=== PATIENT | female | born 1970 | race Caucasian/White ===

== ENCOUNTER 2017-01-28 05:49 | Day surgery (SDC) | payer OTHER ==
[~2017-01-28] VITALS: Ht 154.9 cm; Wt 63.4 kg
[2017-01-28] VITALS (12 sets, daily range): BP systolic 98–131; BP diastolic 59–80; PULSE 59–86; RESP 8–17; O2SAT 91–98
[~2017-01-28 05:49] MED LIST: ASCO250T7 PO; CHOL200047 PO; FLUT16SP NS; LORA10CA PO; Lactated Ringer's 1,000 ML IV ONE
[2017-01-28] MEDS ORDERED: Rocuronium 10 mg/mL 5 mL Inj ONE (05:50)
[2017-01-28] MEDS ORDERED: EPHEDrine/NS 5 mg/mL 5 mL Syringe ONE (05:50)
[2017-01-28] MEDS ORDERED: Dexamethasone 4 mg/mL Inj ONE (05:50)
[2017-01-28] MEDS ORDERED: Succinylcholine Chloride 20 mg/mL 5 mL Inj ONE (05:50)
[2017-01-28] MEDS ORDERED: Propofol 10,000 mCg/mL 20 mL Inj ONE (05:50)
[2017-01-28] MEDS ORDERED: fentaNYL-PF 50 mCg/mL 2 mL Inj ONE (05:50)
[2017-01-28] MEDS ORDERED: Remifentanil 1 mg/3 mL Inj ONE (05:50)
[2017-01-28] MEDS ORDERED: Ondansetron 2 mg/mL 2 mL Inj ONE (05:50)
[2017-01-28] MEDS ORDERED: MetoCLOpramide 5 mg/mL 2 mL Inj ONE (05:50)
[2017-01-28] MEDS ORDERED: DEXAMETHASONE IV ONE ×2 (06:00)
[2017-01-28] MEDS ORDERED: D5W IV ONE ×2 (06:00)
[2017-01-28] MEDS ORDERED: ACET325T51 PO (06:41)
[2017-01-28] MEDS ORDERED: Lidocaine 1%/Epi 1:100,000 30 mL MDV INFILTRATE ONE (07:30)
[2017-01-28] MEDS ORDERED: Lactated Ringer's 1,000 ML IV SCH (07:56)
[2017-01-28] MEDS ORDERED: Lactated Ringer's 500 ML IV PRN (07:56)
--- NOTE | 2017-01-28 07:56 | PCM.HPANE ---
Patient Data Surgeon Admitting Provider: Attending Provider:Jose Guadalupe Marie MD Primary Care Physician:Catarino Other Provider:Janusz Godinez Anesthesia Reason for Visit Neoplasm Of Uncertain Behavior Of Thyroid Gland Ht/WT & BMI Height (Feet): 5 Height (Inches): 1 Weight (Kilograms): 63.4 Body Mass Index 26.00 Allergies Coded Allergies: No Known Allergies (Verified Allergy, Unknown, 12/14/10) Past Anesthesia History Anesthesia History: Positive for:: Anesthesia Reactions (slow to arouse after surgery), Denies:: Abnormal Airway, Difficult Intubation Diabetes History Hx Diabetes?: No MRSA MRSA: No Medications Hypertension Medication: No Home Meds Incl Beta Dieter: No Reported Medications Acetaminophen 325 Mg [id number] Mg PO Q4H PRN For Pain Ref 0 01/28/17 Ascorbic Acid (Vitamin C)250 Mg Tab.[id number] Mg PO DAILY #30 TABLET Ref 0 01/22/17 Fluticasone Propionate (Fluticasone Propionate Nasal)16 Gm [email or web address] [place] NS BID #16 GM Ref 0 01/22/17 Loratadine (Claritin)10 Mg [id number] Mg PO DAILY Ref 0 01/22/17 Cholecalciferol (Vitamin D3) (Vitamin D3)2,000 Unit Capsule2,000 Unit PO DAILY 01/22/17 Discontinued Reported Medications Loratadine-Expunged Drug, Do Not Renew! 10 Mg [id number] Mg PO DAILY prn 12/14/10 History History of ENT Problems?: No HEENT History: Denies:: Abnormal Airway Cataracts Difficult Intubation Dysphagia Glaucoma Hearing Problem Sinus Problem TMJ Denture Type: None Teeth Condition: Within Normal Limits Hx of Heart Problems?: No Cardiovascular History: Denies:: AICD Abdominal Aortic Aneurism Atrial Fibrillation Cardiac Surgery Edema Heart Murmur Hypertension Irregular Heartbeat Pacemaker Peripheral Vascular Rheumatic Fever Hx of Respiratory Problem?: No Respiratory History: Denies:: Asthma COPD Emphysema Oxygen Administration Pneumonia Tuberculosis Use of C-PAP Machine Use of Inhalers / NEBS Hx Neurologic Problems?: No Neurological History: Denies:: CVA Dementia Dizziness Headaches Multiple Sclerosis Parkinson's Disease Seizures TIA Hx of GI Problems?: Yes Hx of Problems?: No Genitourinary History: Denies:: Kidney Stones Urinary Tract Infection (past hx ) Female Hx: Denies:: Currently Problems with Breasts? Skin History: Denies:: History Skin Disorders? Pressure Ulcers Hx Musculoskeletal Problems?: Yes Musculoskeletal History: Positive for:: Back Injury (sciatica left sided) Denies:: Fibromyalgia Joint Replacement Myasthenia Gravis Osteoarthritis Systemic Lupus Hx of Psycho/Social Problems?: No Psycho Social History: Denies:: Anxiety Hx Depression Hx Surgeries?: Yes (kristi, partial hyst, ovarian mass) Hx Any Other Health Problems?: Yes Other History: Positive for:: Thyroid Disease (current admission problem) Denies:: Cancer Hospitalization History Blood Transfusions: Positive for:: Accept Blood Products? Denies:: Blood Transfusions Hx Diabetes: No Hx Alcohol Use: YesAlcoholic Drinks Per Day: 2 drinks weeklyHx Substance Use: NoHave You Smoked inLast 12 mo: No Stop/Bang S-Snoring: Do You Snore Loudly: No T-Tired: feel tired, fatigued: No O-Obsered: Observed not breath: No P-Blood Pressure: treated: No B- Body Mass Index > 35 kg/m2: No A- Age over 50: No N- Neck Large Circumference: No G- Gender Male: No HELEN Total Score: 0 Risk Assessment Category Category 1A: Patient has history of documented sleep apnea, and HAS NOT received any narcotic, sedative or anesthesia administration during this stay. Category 1B: Patient has history of documented sleep apnea, and HAS received any narcotic , sedative or anesthesia administration during this stay Category 2: Patient has SUSPECTED Obstructive Sleep Apnea, and HAS received any narcotic , sedative or anesthesia administration during this stay. Category 3: Patient has SUSPECTED Obstructive Sleep Apnea and HAS NOT received narcotic, sedative or anesthesia administration during this stay. Category 4: Outpatient in Procedural Areas with known sleep apnea or who screen positive for High Risk via the STOP/BANG questionnaire. Exam Exam Vital Signs Vital Signs Date Time Temp Pulse Resp B/P Pulse Ox O2 Delivery O2 Flow Rate FiO2 01/28/17 06:30 36.2 59 12 98/73 98 Room Air 01/28/17 06:27 36.2 59 12 98/73 98 Room Air General Appearance: Alert, Oriented X3, Cooperative, No Acute Distress HEENT/AIRWAY: MP 2, Neck Movement (FROM), Mouth Opening (3 FBMO) Lungs: Clear to Auscultation, Normal Air Movement Heart: Exam Unremarkable, Regular Rate/Rhythm, No Murmurs/Rubs/Gallops Meds/Labs/Diagnostics Admission Meds Current Medications Dexamethasone Sodium Phosphate 10 mg/Dextrose/ Water 51 ml @ 102 mls/hr PREOP ONCE IV Last administered on 01/28/17 06:33; Start 01/28/17 at 06:00; Stop at 06:29; Status DC Lactated Ringer's (Lr) 1,000 ml @ 120 mls/hr Q8H20M ONCE IV Last administered on 01/28/17 05:52; Start 01/28/17 at 05:00; Stop 01/28/17 at 13:19 Plan Impression Patient chart reviewed, patient interviewed and anesthestic plan with risks, benefits, and alternatives discussed, and informed consent obtained. NPO per Anesth. Guidelines: Yes ASA Physical Status: ASA2 Mod Systemic Disease Anesthetic Plan: GA Bene/Risks/Altern/Consents: Yes HP Complete Prior to Induction: Yes Elkin Addison MD Jan 28, 2017 06:52
[2017-01-28] MEDS ORDERED: Phenylephrine 10,000 mCg/mL Inj IVPUSH PRN (08:00)
[2017-01-28] MEDS ORDERED: Labetalol 5 mg/mL 4 mL Inj IV PRN (08:00)
[2017-01-28] MEDS ORDERED: EPHEDrine Sulfate 50 mg/mL Inj IVPUSH PRN (08:00)
[2017-01-28] MEDS ORDERED: Ondansetron 2 mg/mL 2 mL Inj IVPUSH PRN (08:00)
[2017-01-28] MEDS ORDERED: MetoCLOpramide 5 mg/mL 2 mL Inj IVPUSH PRN (08:00)
[2017-01-28] MEDS ORDERED: Atropine 0.4 mg/mL Inj IVPUSH PRN (08:00)
[2017-01-28] MEDS ORDERED: fentaNYL-PF 50 mCg/mL 2 mL Inj IVPUSH PRN (08:00)
[2017-01-28] MEDS ORDERED: Bacitracin Ointment Packet TOPICAL ONE (09:07)
[2017-01-28] MEDS: HYDROmorphone 1 mg/mL Inj IVPUSH PRN ×2 (09:35→09:41)
[2017-01-28] MEDS ORDERED: HYDROcodone-APAP 5-325 mg Tablet PO ONE ×2 (09:55→10:41)
--- NOTE | 2017-01-28 10:09 | PCM.ANEP1 ---
Post Anesthesia Phase 1 PACU Phase 1 Assessment Vital Signs Vital Signs Date Time Temp Pulse Resp B/P Pulse Ox O2 Delivery O2 Flow Rate FiO2 01/28/17 10:00 74 11 104/76 93 Nasal Cannula 2 01/28/17 09:46 82 13 100/61 92 Nasal Cannula 1 01/28/17 09:35 36.3 83 14 104/66 93 Nasal Cannula 2 01/28/17 09:31 86 17 106/60 94 Nasal Cannula 4 01/28/17 09:25 85 8 103/59 94 Nasal Cannula 4 01/28/17 09:20 84 15 108/68 92 Nasal Cannula 4 01/28/17 09:15 36.4 85 12 131/80 98 Simple Mask 8 01/28/17 06:30 36.2 59 12 98/73 98 Room Air 01/28/17 06:27 36.2 59 12 98/73 98 Room Air Anesthetic Administered: GA Level of Alertness: Awake, talking OCHOA's with Equal Strength: Yes Pain: No Nausea or Vomiting: No Cardiovascular Function and Hy: Yes Oxygen Delivery: Simple Mask Lungs: Clear to Auscultation, Normal Air Movement Dermatome Level: Full Sensation Complications: No Follow up Care: No Elkin Addison MD Jan 28, 2017 10:09
--- NOTE | 2017-01-28 17:45 | OP ---
[address] [address] OPERATIVE REPORT PATIENT: NOEL CISNEROS : 1970 MR#: [id number] ADMIT: 01/28/2017 JOB ID: [id number] DATE OF SURGERY: 01/28/2017 PREOPERATIVE DIAGNOSIS(ES): Right thyroid mass. POSTOPERATIVE DIAGNOSIS(ES): Right thyroid mass. PROCEDURE: Total thyroidectomy. SURGEON: Jose Guadalupe Marie MD. CHAINSTITCH FELLED SEAM OPERATOR: Jason Stout MD. ANESTHESIA: General endotracheal anesthesia. ESTIMATED BLOOD LOSS: 10 mL. FINDINGS: Right thyroid hypertrophy, left lobe grossly normal. Recurrent laryngeal nerves identified and intact, probable inferior parathyroids identified and left in situ. Excellent hemostasis. COMPLICATIONS: None. INDICATIONS: A 46-year-old female with the above diagnosis, suspicious for malignancy by gene expression analysis, atypia on FNA 09/2016 presents for the above procedure. Following discussion of the material risks, benefits, complications and alternatives, she elected total thyroidectomy to prevent the need for further surgery in the future. DESCRIPTION OF PROCEDURE: Following identification and confirmation of consent, she is brought to the operating suite and placed in the supine position. General endotracheal anesthesia was administered. The neck was extended with a shoulder roll placed. A slightly curved incision approximately two fingerbreadths superior to the sternal notch was marked in ink and widely infiltrated with 1% lidocaine at 1:200,000 epinephrine. Following sterile prep and drape, a 15 blade incised the skin and subcutaneous tissue. Sharp dissection proceeded through the platysma and subplatysmal flaps were raised superiorly and inferiorly with intermittent monopolar cautery for hemostasis. The midline raphe of the strap muscles was identified, and the strap muscles were elevated off of the thyroid lobes bilaterally. Beginning on the patient's left side, dissection on the gland was performed utilizing the LigaSure for hemostasis. Beginning on the inferior pole, inferior pole vessels were ligated. The recurrent laryngeal nerve was identified medial to the carotid and lateral to the trachea and traced superiorly. The left thyroid lobe was dissected free including weinstein's ligament, with the nerve in full view. The superior pole vessels were ligated with the LigaSure and additionally suture ligated with 2-0 silk. The isthmus was transected and the specimen was sent separately. The right thyroid lobe was then resected in a similar fashion, elevating the strap muscles, isolating the inferior pole vessels with care to avoid possible devascularization of a probable visible parathyroid. The recurrent laryngeal nerve was again identified and traced superiorly. Lateral and medial dissection of the gland was performed and weinstein's ligament was resected, again with the nerve in full view. The superior pole vessels were individually ligated with the LigaSure. The right lobe was sent as a separate specimen. Hemostasis was excellent, and the wound was irrigated with Betadine. The strap muscles were closed in the midline with interrupted 4-0 chromic followed by a two layer closure of the subcutaneous fat and dermis. Finally, a running 6-0 nylon closed skin followed by a pressure dressing. She was awakened in the operating room, taken to recovery room in stable condition without known complication. Sponge, needle and instrument counts were correct. Postoperative care: If recovering well, she may be discharged home today, monitoring for any perioral paresthesias or paresthesias of her digits to suggest hypocalcemia. She may decide to use Tums 2-3 times daily, up to q.i.d. if symptomatic. Follow up next week for suture removal, maintain dressing as tolerated. Begin levothyroxine 100 mcg daily tomorrow, [place] for pain. The patient and her agree with the plan, understand and appreciate. JOYA
--- NOTE | 2017-02-04 14:49 | PATH ---
SURGICAL PATHOLOGY Attending Physician:Jose Guadalupe Marie MD (A CASE STATUS: Signed Out PATIENT NAME: NOEL CISNEROS PID: [id number] : 1970 DATE COLLECTED:01/28/2017 20:35 SPECIMEN: 1: Thyroid, Lobectomy 2: Thyroid, Lobectomy CLINICAL HISTORY: NEOPLASM OF UNCERTAIN BEHAVIOR THYROID GLAND 1). LEFT THYROID LOBE 2). RIGHT THYROID LOBE FINAL DIAGNOSIS: 1.LEFT THYROID LOBE, LOBECTOMY: PAPILLARY CARCINOMA, FOLLICULAR VARIANT, ENCAPSULATED, WITH TUMOR CAPSULAR INVASION. PLEASE SEE SUMMARY CANCER DATA BELOW. 2.RIGHT THYROID LOBE, LOBECTOMY: FOLLICULAR ADENOMA, 2.1 CM. NODULAR HYPERPLASIA. BIOPSY SITE CHANGES. NO EVIDENCE OF MALIGNANCY. CAP CANCER CASE SUMMARY: PROCEDURE: TOTAL THYROIDECTOMY. LYMPH NODE SAMPLING: NONE. TUMOR LATERALITY: LEFT LOBE. TUMOR FOCALITY: UNIFOCAL. TUMOR SIZE: 6 MM IN GREATEST DIMENSION. HISTOLOGIC TYPE: PAPILLARY CARCINOMA, FOLLICULAR VARIANT, ENCAPSULATED, WITH TUMOR CAPSULAR INVASION. MARGINS: MARGINS UNINVOLVED BY CARCINOMA. CLOSEST MARGIN: 0.5MM POSTERIOR. ANGIOINVASION: NOT IDENTIFIED. LYMPHATIC INVASION: NOT IDENTIFIED. PERINEURAL INVASION: NOT IDENTIFIED. EXTRATHYROIDAL EXTENSION: NOT IDENTIFIED. PATHOLOGIC STAGING: (AJCC 7th Ed., 2010). PRIMARY TUMOR: pT1a. REGIONAL LYMPH NODES: pNX. ADDITIONAL PATHOLOGIC FINDINGS: BIOPSY SITE CHANGES. NODULAR HYPERPLASIA. ICD10 code C73 NOTE: As part of a routine quality assurance associate, Dr. Essence Donahue has also reviewed this case and agrees with the diagnosis. Dr. Kebede called Dr. Marie' office on 01/31/2017. GROSS DESCRIPTION: The specimens are received in formalin, labeled with the patient's name, and sublabeled as the following: (1) left thyroid lobe; (2) right thyroid lobe. (1) The specimen consists of a thyroid gland lobe (6.2 g, 4.1 x 2.2 x 1.7 cm). The specimen cannot be oriented as to superior and inferior. The capsule is red-brown smooth and shiny. The parenchyma is red-brown with a diffuse glassy multinodular (0.2 x 0.1 x 0.1 cm- 0.7 x 0.5 x 0.5 cm) semi-translucent cut surface. Ink code: purple-anterior; yellow-posterior; green-medial. Section code: (1A) pole #1, perpendicularly sectioned, entirely submitted; (1B-1E) thyroid lobe, serially sectioned from pole #1 to #2, senior patient account representative; (1F) pole #2, perpendicularly sectioned, entirely submitted. Additional Sections: (1G-1I) remaining thyroid lobe. Specimen entirely submitted. 02/02/17 (2) The specimen consists of a thyroid gland lobe (13.2 g, 4.2 x 2.7 x 2.1 cm). The specimen cannot be oriented as to superior and inferior. The capsule is red-brown smooth and shiny. The parenchyma is red-brown with a diffuse glassy multinodular (0.5 x 0.3 x 0.3 cm-2.1 x 1.5 x 1.4 cm) semi-translucent cut surface. Ink code: purple-anterior; yellow-posterior; green-medial. Section code: (2A) pole #1, perpendicularly sectioned, entirely submitted; (2B-2E) thyroid lobe, serially sectioned from pole #1 to #2, senior patient account representative; (2F) pole #2, perpendicularly sectioned, entirely submitted. 01/30/17 MICRO DESCRIPTION: See diagnosis. ICD-9 CODES: CPT CODES: 1: 37938 2: 06022 Electronically Signed Out Neema Kebede MD [facility] Pathology [facility] [address], [place] [address] Technical component performed at [facility], [address] [place] [address] Ave[address], [place], [address]
== END 2017-01-28 23:59 | disposition home or self-care (01) ==
LOC: SAS 05:49
PROVIDERS: ATTEND Otolaryngology
DX: C73 Malignant neoplasm of thyroid gland (principal)
CPT/HCPCS: 60240; 88307; J0330; J1100; J1170; J2250; J2405; J2765; J3010; J7120